=== PATIENT | female | born 1995 ===

== ENCOUNTER 2017-06-22 20:41 | Emergency (ER) | payer OTHER ==
[2017-06-22 20:51] VITALS: BP 131/67; PULSE 100; RESP 16; TEMP 99.1; O2SAT 96
[2017-06-22 21:43] LABS: BASO % 0.4 % (0.0-2.0); EOS % 0.1 % (0.0-4.0); LYMPH # 2.5 K/uL (1.0-4.3); LYMPH % 29.2 % (20.0-40.0); MEAN CELL VOLUME 90.6 fl (81.0-99.0); MEAN CORPUSCULAR HEMOGLOBIN 30.3 pg (27.0-31.0); MEAN CORPUSCULAR HGB CONC 33.4 g/dL (33.0-37.0); MEAN PLATELET VOLUME 8.7 fl (7.2-11.7); MONO # 0.4 K/uL (0.0-0.8); MONO % 4.8 % (0.0-10.0); NEUT # 5.5 K/uL (1.8-7.0); NEUT % 65.5 % (50.0-75.0); RED CELL DISTRIBUTION WIDTH 13.4 % (11.5-14.5); WHITE BLOOD COUNT 8.4 K/uL (4.8-10.8)
--- NOTE | 2017-06-22 21:48 | ED PDOC ---
HPI: General Adult Time Seen by Provider: 06/22/17 21:00 Chief Complaint (Nursing): Abdominal Pain Chief Complaint (Provider): epigastric discomfort History Per: Patient (21 y/o female approx 7 week gestation here with epigastric pain today continuous associated with vomiting. Denies any fevers/ chills. Has started PNV. No care as of yet. ) Past Medical History Reviewed: Historical Data, Nursing Documentation, Vital Signs Vital Signs: Last Vital Signs Temp 99.1 F 06/22/17 20:47 Pulse 100 H 06/22/17 20:47 Resp 16 06/22/17 20:47 BP 131/67 06/22/17 20:47 Pulse Ox 96 06/22/17 21:49 - Family History Family History: States: No Known Family Hx - Home Medications Home Medications: Ambulatory Orders Medication Instructions Recorded Ondansetron ODT [Zofran ODT] 4 mg PO Q8 PRN #10 odt 06/23/17 - Allergies Allergies/Adverse Reactions: Allergies Allergy/AdvReac Type Severity Reaction Status Date / Time No Known Allergies Allergy Verified 06/22/17 20:51 Review of Systems ROS Statement: Except As Marked, All Systems Reviewed And Found Negative Gastrointestinal: Positive for: Vomiting, Abdominal Pain Physical Exam - Reviewed Nursing Documentation Reviewed: Yes Vital Signs Reviewed: Yes - Physical Exam Appears: Positive for: Well, Non-toxic, No Acute Distress Head Exam: Positive for: ATRAUMATIC, NORMAL INSPECTION, NORMOCEPHALIC Skin: Positive for: Normal Color, Warm, DRY Eye Exam: Positive for: EOMI, Normal appearance, PERRL ENT: Positive for: Normal ENT Inspection Neck: Positive for: Normal, Painless ROM Cardiovascular/Chest: Positive for: Regular Rate, Rhythm Respiratory: Positive for: CNT, Normal Breath Sounds Gastrointestinal/Abdominal: Positive for: Normal Exam, Bowel Sounds, Soft, Tenderness (epigastric tenderness) Back: Positive for: Normal Inspection Extremity: Positive for: Normal ROM Neurologic/Psych: Positive for: Alert, Oriented - Laboratory Results Result Diagrams: 06/22/17 19:38 06/22/17 21:20 Urine POC: Positive Urine dip results: Positive for: Blood, Ketones. Negative for: Leukocyte Esterase, Nitrate, Glucose, Bilirubin, Protein - ECG O2 Sat by Pulse Oximetry: 96 - Progress ED Course And Treament: us abdomen: gallbladder sludge; no stones; no signs of cholecystitis us pelvis: 6 week 3 day SLIUP; heart activity noted. pepcid 20mg iv x 1 dose zofran 4 mg iv x 1 dose NS 1 liter wide open D5 1/2 NS 1 liter 500 ml per hour. Disposition - Clinical Impression Clinical Impression: Gastritis - Patient ED Disposition Is Patient to be Admitted: No - Disposition Disposition: Routine/Home Disposition Time: 02:24 Condition: FAIR Prescriptions: Ondansetron ODT [Zofran ODT] 4 mg PO Q8 PRN #10 odt PRN Reason: Nausea/Vomiting Instructions: Hyperemesis Gravidarum (ED) Forms: [facility] ([facility])
[2017-06-22] MEDS ORDERED: Sodium Chloride 0.9% 1,000 ML IV STA (21:49)
[2017-06-22 21:52] LABS: URINE BACTERIA RARE (<OCC); URINE BILIRUBIN NEGATIVE (NEGATIVE); URINE BLOOD NEGATIVE (NEGATIVE); URINE COLOR YELLOW (YELLOW); URINE GLUCOSE (UA) NEG (Normal); URINE KETONE 80 mg/dL (NEGATIVE); URINE LEUKOCYTE ESTERASE NEG Leu/uL (Negative); URINE PROTEIN 30 mg/dL (NEGATIVE); WBC URINE 4 /hpf (0-5)
[2017-06-22 21:55] LABS: RBC URINE 2 /hpf (0-3)
[2017-06-22 22:00] LABS: ALB/GLOB RATIO 1.3 (1.0-2.1); ALKALINE PHOSPHATASE 52 U/L (38-126); ALT/SGPT 88 U/L (9-52); AST/SGOT 48 U/L (14-36); BILIRUBIN,TOTAL 1.4 mg/dl (0.2-1.3); BLOOD UREA NITROGEN 10 mg/dl (7-17); CALCIUM 9.3 mg/dL (8.4-10.2); CARBON DIOXIDE 19 mmol/L (22-30); CHLORIDE 104 mmol/L (98-107); GFR AFRICAN-AMERICAN > 60; GLUCOSE,RANDOM 119 mg/dL (65-105); LIPASE 95 U/L (23-300); SODIUM 135 mmol/l (132-148); TOTAL PROTEIN 7.4 G/DL (6.3-8.2)
[2017-06-22] MEDS ORDERED: Dextrose 5%/0.45% NS 1,000 ML IV SCH (22:00)
[2017-06-22 22:09] LABS: POTASSIUM 4.8 MMOL/L (3.6-5.0)
--- NOTE | 2017-06-22 23:37 | US ---
EXAM: US Abdomen Limited, Right Upper Quadrant CLINICAL HISTORY: 21 years old, female; Pain; Abdominal pain; Epigastric; ; Additional info: Evaluate for gallstone TECHNIQUE: Real-time ultrasound of the right upper quadrant with image documentation. COMPARISON: No relevant prior studies available. FINDINGS: Liver: Unremarkable in echogenicity and size measuring 12.4 cm in longitudinal dimension. No intrahepatic bile duct dilation. Gallbladder: Sludge is identified within the gallbladder, which is otherwise unremarkable. Common bile duct: No stones. No dilation, measuring 3 mm. Pancreas: Visualization of the pancreas is limited by overlying bowel gas. Right kidney: No acute findings. No obstructing stones. No solid mass. No hydronephrosis. IMPRESSION: Sludge within an otherwise unremarkable gallbladder, as detailed above. Limited evaluation of the pancreas, secondary to overlying bowel gas.
--- NOTE | 2017-06-22 23:42 | US ---
EXAM: US Uterus, Limited CLINICAL HISTORY: 21 years old, female; Pain; Other: Abd pain; Gestational age or lmp: 05/02/17; ; Additional info: Approx 7 weeks ; Abdominal pain TECHNIQUE: Real-time ultrasound of the maternal uterus (limited) with image documentation. COMPARISON: No relevant prior studies available. FINDINGS: A single intrauterine gestation is identified with a crown-rump length measuring 6 mm, corresponding to an approximate gestational age of 6 weeks and 3 days. A well-formed yolk sac is detected. The mean gestational sac size measures 2.6 cm, corresponding to an approximate gestational age of 7 weeks and 2 days. cardiac activity is identified at a rate of 127 beats per minute. The left ovary is unremarkable in echogenicity and size measuring 1.9 x 1.5 x 1.9 cm. The right ovary is unremarkable in echogenicity and size measuring 2.8 x 2.2 x 2.5 cm. No free fluid is detected. No implantation hemorrhage is noted. The cervix measures 5 cm, and is closed. IMPRESSION: Single intrauterine gestation with an approximate gestational age of 6 weeks and 3 days. cardiac activity is identified.
== END 2017-06-23 03:08 | disposition home or self-care (01) ==
LOC: H.ER 20:41
DX: O26.891 Other specified pregnancy related conditions, first trimester (principal); Z3A.01 Less than 8 weeks gestation of pregnancy; K29.70 Gastritis, unspecified, without bleeding
CPT/HCPCS: 76705; 76815; 80053; 81003; 81025; 83690; 84702; 85025; 87086; 96361; 96374; 96375; 99283; J2405; J7040; J7042

== ENCOUNTER 2018-01-29 09:59 | Inpatient (IN) | payer MEDICAID, SELFPAY ==
[2018-01-29 11:22] VITALS: BMI 27.1
[2018-01-29] MEDS ORDERED: Lactated Ringer's 1,000 ML IV SCH ×2 (11:30)
--- NOTE | 2018-01-29 13:00 | OBHP ---
Datetime: 01/29/2018 11:08 IP Adm Impression: Term, intrauterine ; No Active Labor; Ruptured Membranes IP Admit Plan: Admit to unit; Initiate labor protocol Admit Comment, IP Provider: 22 yo at 38.6 weeks GA, THERESA 02/06/18 based on LMP, c/w first trimest er US presents to [facility] w/ c/o suspected SROM at 9:40 am this morning. Pt reports +fm. Denies LOF, ctx or VB. Pt is GBS negative. PNC: Dr. Arredondo, 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 hx rheumatic heart disease, cleared by cardiolgoist pshx: denies socialhx: denies smoking, drinking alcohol or using drugs family hx: denies family hx CAD or HTN meds: PNV allergies: NKDA Assessment: 22 yo IUP @38.6 weeks GA presents for SROM Plan: Admit to L_D Initiate labor protocol continue heart tracing gbs negative labs Case d/w on-call OB Hospitalist Dr. Wilfredo Villalba OB Hospitalist on-call - Pt seen. Agree with note. conditoin, labor, pain managemnt, labor, IOL, d elivery and discussed - MAHNDO Extremities - PN: Normal Abdomen - PN: Normal Back - PN: Normal Lungs - PN: Normal Heart - PN: Normal Neurologic - PN: Normal HEENT - PN: Normal General - PN: Normal FHR - Baseline A Provider: 130s Amniotic Fluid Color, Provider: Clear Membranes, Provider: Ruptured Comments, ACOG Physical Exam: SPE: + pooling. Clear fluids sve: 1/thick/high Pool Provider: Positive Nitrazine Provider: Positive Ferning Provider: Positive IP Hx Assessment: The History has been Reviewed and is Current EGA AdmitDate IP: 38.6 IP Chief Complaint: Suspected ruptured membranes NICHD Variability Prov Fetus A: Moderate 6-25bpm NICHD Accel Fetus A IP Provider: [id number] FHR Category Provider Fetus A: Category I NICHD Decel Fetus A IP Provider: None Dilatation, Provider: 1 Effacement, Provider: thick Station, Provider: high
[2018-01-29 13:01] LABS: BASO % 0.5 % (0.0-2.0); EOS # 0.1 K/uL (0.0-0.7); EOS % 0.9 % (0.0-4.0); HEMOGLOBIN 11.2 g/dL (12.0-16.0); LYMPH # 1.8 K/uL (1.0-4.3); LYMPH % 22.6 % (20.0-40.0); MEAN CELL VOLUME 99.5 fl (81.0-99.0); MEAN CORPUSCULAR HEMOGLOBIN 33.1 pg (27.0-31.0); MEAN CORPUSCULAR HGB CONC 33.3 g/dL (33.0-37.0); MEAN PLATELET VOLUME 10.1 fl (7.2-11.7); MONO # 0.6 K/uL (0.0-0.8); MONO % 7.2 % (0.0-10.0); NEUT # 5.6 K/uL (1.8-7.0); NEUT % 68.8 % (50.0-75.0); NRBC % 0.1 % (0.0-0.0); RBC 3.37 Mil/uL (3.80-5.20); RED CELL DISTRIBUTION WIDTH 14.8 % (11.5-14.5); WHITE BLOOD COUNT 8.1 K/uL (4.8-10.8)
--- NOTE | 2018-01-29 15:58 | OBPN ---
Datetime: 01/29/2018 15:30 IP Progress Impression: Reassuring heart rate; Rupture of membranes IP Informed Consent Obtain: Vaginal Delivery; Risks, Benefits and Alternatives Discussed IP Progress Plan: Induction; Cervical Ripening Membranes, Provider: Ruptured Presentation-Admit: Vertex IP Progress Note Comment: She feels fine. Occ CTX; no VB; +FM No cervical change note A: IUP at term; unfavorable cervix PLAN: condition explained to pt. Agrees to start Cytotec for IOL. Medications discussed incl ris ks/complicatoins (FOB present) FHR Category Provider Fetus A: Category I Dilatation, Provider: FT Effacement, Provider: LONG Station, Provider: HIGH Datetime: 01/29/2018 11:08 Pool Provider: Positive Nitrazine Provider: Positive Ferning Provider: Positive Amniotic Fluid Color, Provider: Clear FHR - Baseline A Provider: 130s NICHD Accel Fetus A IP Provider: [id number] NICHD Variability Prov Fetus A: Moderate 6-25bpm NICHD Decel Fetus A IP Provider: None
[2018-01-30] MEDS ORDERED: Nalbuphine 20 mg/ml Inj (1 ml) IVP PRN (00:37)
[2018-01-30] MEDS: Lactated Ringer's 1,000 ML IV SCH ×3 (09:00→13:15)
[2018-01-30] MEDS ORDERED: Oxytocin 30 units/LR 500ML 30 U/500 ML BAG IV ONE ×2 (11:28→11:30)
[2018-01-30] MEDS ORDERED: Bupivacaine HCl 0.25% PF (10 ml) Inj ONE (12:35)
[2018-01-30] MEDS ORDERED: Fentanyl/Bupivacaine HCl 125 ML EPI ONE (12:37)
[2018-01-30] MEDS ORDERED: Lidocaine 1% Inj (20ml) ONE (18:22)
[2018-01-30] MEDS ORDERED: Benzocaine/Menthol SPRAY TOP PRN ×2 (18:33→22:36)
[2018-01-30] MEDS ORDERED: Oxycodone/Acetaminophen 5/325 mg Tab PO PRN ×2 (18:33→22:36)
--- NOTE | 2018-01-30 18:43 | OBDS ---
DELIVERY PERSONNEL Delivery Doctor: Bernice Kate MD [place] Dehydrator Operator: Cindy Benson RN Anesthesiologist: Mdeina Graf MD Resident: Dr Leonardo MATERNAL INFORMATION Delivery Anesthesia: Epidural Medications in Delivery: pitocin 30 units in 500 ml LR Estimated Blood Loss (ml): 100 Placenta Cultured: No Maternal Complications: None Provider Comments: Delivered a live baby girl at 1821 the baby was bulb suctioned on the perineum an d transferred to the maternal chest. The cord was clamped and cut 3 vessels noted cord blood was obta ined and sent to the lab. Placenta was delivered at 1825 intact, the estimated blood loss was 100 mL. There was a first-degree vaginal laceration which was repaired with 2-0 Rapide. The mother tolerated the procedure well and the baby went to the nursery with Apgars of 9 and 9 weighing 2855 g LABOR SUMMARY EDC: 02/06/2018 00:00 No. Babies in Womb: 1 Attempted: No Labor Anesthesia: Epidural LABOR INFORMATION Reason for Induction: Premature Rupture of Membranes Onset of Labor: 01/29/2018 09:40 Complete Dilatation: 01/30/2018 17:48 Cervical Ripening Agents: Cytotec @ 50 Oxytocin: Augmentation Group B Beta Strep: Negative Reason Steroids Not Administered: Not Applicable MEMBRANES Membranes Rupture Method: Spontaneous Rupture of Membranes: 01/29/2018 09:40 Length of Rupture (hrs): 32.68 Amniotic Fluid Color: Clear Amniotic Fluid Amount: Moderate Amniotic Fluid Odor: Normal STAGES OF LABOR Stage 1 hrs: 32 Stage 1 min: 8 Stage 2 hrs: 0 Stage 2 min: 33 Stage 3 hrs: 0 Stage 3 min: 4 Total Time in Labor hrs: 32 Total Time in Labor min: 45 VAGINAL DELIVERY Episiotomy: None Laceration Extension: First Degree Laceration Type: None Laceration Repair: Yes Initial Vag Sponge Count: 5 Final Vag Sponge Count: 5 Initial Vag Sharps Count: 1 Final Vag Sharps Count: 1 Sponge Count Correct: Yes Sharps Count Correct: Yes BABY A INFORMATION Infant Delivery Date/Time: 01/30/2018 18:21 Method of Delivery: Vaginal Born in Route : No : N/A Forceps: N/A Vacuum Extraction: N/A Shoulder Dystocia : No SHOULDER DYSTOCIA BABY A Infant Delivery Date/Time: 01/30/2018 18:21 PRESENTATION/POSITION BABY A Presentation: Cephalic Cephalic Presentation: Vertex Breech Presentation: N/A PLACENTA INFORMATION BABY A Placenta Delivery Time : 01/30/2018 18:25 Placenta Method of Delivery: Spontaneous Placenta Status: Delivered SCORES BABY A Heart Rate 1 min: >100 bpm Resp Effort 1 min: Good Cry Reflex Irritability 1 min: Cough or Sneeze or Pulls Away Muscle Tone 1 min: Active Motion Color 1 min: Body [place], Extremities Blue SCORE 1 MIN: 9 Heart Rate 5 min: >100 bpm Resp Effort 5 min: Good Cry Reflex Irritability 5 min: Cough or Sneeze or Pulls Away Muscle Tone 5 min: Active Motion Color 5 min: Body [place], Extremities Blue SCORE 5 MIN: 9 INFORMATION BABY A Gestational Age at Delivery: 39.0 Gestational Status: Term Infant Outcome : Liveborn Condition : Stable Infant Sex: Female CORD INFORMATION BABY A No. Cord Vessels: 3 Nuchal Cord : N/A Cord Blood Taken: No Suction: Mouth; Nose
[2018-01-30] MEDS ORDERED: Lactated Ringer's 1,000 ML IV SCH (22:36)
[2018-01-31 06:46] LABS: MEAN CELL VOLUME 97.3 fl (81.0-99.0); MEAN CORPUSCULAR HEMOGLOBIN 33.8 pg (27.0-31.0); MEAN CORPUSCULAR HGB CONC 34.7 g/dL (33.0-37.0); RBC 2.96 Mil/uL (3.80-5.20); RED CELL DISTRIBUTION WIDTH 14.9 % (11.5-14.5); WHITE BLOOD COUNT 13.2 K/uL (4.8-10.8)
--- NOTE | 2018-01-31 07:04 | CP.PCM.PCO ---
Addendum Addendum: 01/31/18 07:02 Patient seen this morning. Patient recovering well and appropriately after of daughter. Patient reports crampy pain relieved w/ medication. Patient reports daughter is under observation in nursery due to tachypnea after but otherwise recovering well. Patient reports that she will bottle and breast feed.
--- NOTE | 2018-01-31 09:15 | OBPPN ---
Datetime: 01/31/2018 07:28 PP Pain Prov: Within normal limits PP Nausea Prov: Denies PP Flatus Prov: Yes PP BM Prov: No PP Heart Prov: Normal PP Lungs Prov: Normal PP Abdomen/Uterus Prov: Normal PP Lochia Prov: Normal PP CVA Tenderness Prov: Normal PP Extremities Prov: Normal PP C/S Incision Prov: Not Applicable PP Impression Prov: Normal progression PP Plan Prov: Continue present management PP Progress Note Prov: 22 y/o F now , s/p NVD on 01/30/18. Pelvic pain is well controlled with medication. Pt afebrile, tolerating PO, has good appetite with NO acute events overnight. Pt able to ambulate. Pt voiding with no issues, passing gases but NO bowel movement yet. Pt and carrizales pplementing with formula. Lochia is described as same as menses. Pt denies headache, dizziness, CP, S OB, N/V or calf tenderness All systems reviewed and negative except as above. O: PE: -Gen: A_O, resting comfortably on bed, NAD. -Lungs: CTAB, No W/R/R. -CV: RRR, S1 and S2 present. -ABD: soft, BS +, firm fundus below umbilicus. -EXT: No cyanosis, non-tender calves. A/P: 22 y/o F on PPD 1, stable, recovering well from . --Continue with post- management. -- and ambulation encouraged. --Anticipated discharge 02/01/18. Case discussed with OB chief operations officer Dariel PGY-1. OB Hospitalist Addendum: Pt seen and examined. Agree w/ above. PPD 1 s/p , doing well, breast and bottle feeding. Continue current care. (ES) IP PP Procedures: None Vital Signs Provider PP: Reviewed
--- NOTE | 2018-02-01 08:16 | CP.PCM.PCO ---
Addendum Addendum: 02/01/18 08:13 Patient seen this morning. Patient ambulating and reporting minimal pain. Patient preparing to be discharged home. Has post- appointment with Dr. Arredondo on 03/13/2018. Counseled to have daughter seen by Sunday for evaluation. Patient considering [facility], but will decide upon discharge.
--- NOTE | 2018-02-01 10:28 | OBDCSUM ---
Datetime: 02/01/2018 06:57 Discharged to, Provider: Home Follow up at, Provider: [facility]ICE Disch Instr Activity: Normal activity; May be up to bathroom; May be up for meals; May Shower Disch Instr Diet: Regular Discharge Instructions, Provider: Routine instructions given Discharge Diagnosis, Provider: Term Delivered Discharge Time: 02/01/2018 06:57 Follow up in weeks, Provider: 6 weeks Disch Referrals: None Disch Activity Restrictions: No lifting; No driving; Minimize stair-climbing; No sexual activity; No thing in vagina - [place], tampons, douche Discharge Comment, Provider: --F/U with PCP in 6 weeks for post- examination. -- and ambulation encouraged. --Post- care instructions reviewed with pt. --ER precautions discussed with pt. OB Hospitalist on-call. Pt seen and examined on rounds 10am...agree wtih PGY1 note...PHILIPP
--- NOTE | 2018-02-01 10:28 | OBPPN ---
Datetime: 02/01/2018 06:56 PP Pain Prov: Within normal limits PP Nausea Prov: Denies PP Flatus Prov: Yes PP BM Prov: No PP Heart Prov: Normal PP Lungs Prov: Normal PP Abdomen/Uterus Prov: Normal PP Lochia Prov: Normal PP CVA Tenderness Prov: Normal PP Extremities Prov: Normal PP C/S Incision Prov: Not Applicable PP Progress Prov: Normal PP Impression Prov: Normal progression PP Plan Prov: Discharge PP Progress Note Prov: 22 y/o F now , s/p NVD on 01/30/18. Pelvic pain is well controlled with medication. Pt afebrile, tolerating PO, has good appetite with NO acute events overnight. Pt able to ambulate. Pt voiding with no issues, passing gases but NO bowel movement yet. Pt and carrizales pplementing with formula. Lochia is described as same as menses. Pt denies headache, dizziness, CP, S OB, N/V or calf tenderness All systems reviewed and negative except as above. O: PE: -Gen: A_O, resting comfortably on bed, NAD. -Lungs: CTAB, No W/R/R. -CV: RRR, S1 and S2 present. -ABD: soft, BS +, firm fundus below umbilicus. -EXT: No cyanosis, non-tender calves. A/P: 22 y/o F on PPD 2, stable, recovering well from NVD. --Discharge pt today. --F/U with PCP in 6 weeks for post- examination. -- and ambulation encouraged. --Post- care instructions reviewed with pt. --ER precautions discussed with pt. Case discussed with OB applications support lead Dariel PGY-1. OB Hospitalist on-call. Pt seen and examined on rounds 10am...agree wtih PGY1 note...BERTONDO Vital Signs Provider PP: Reviewed
[2018-02-01 17:55] VITALS: BP 119/78; PULSE 86; RESP 20; TEMP 98; O2SAT 99
== END 2018-02-01 13:28 | disposition home or self-care (01) | DRG 774 ==
LOC: H.EROB2 09:59 → H.EROB 11:23 → H.L&D 20:57 → H.OB/GYN 01-30 22:33
PROVIDERS: ADMIT Obstetrics & Gynecology; ATTEND Obstetrics & Gynecology
PROC: 0HQ9XZZ Repair Perineum Skin, External Approach (ICD-10-PCS; principal; 2018-01-29)
PROC: 10E0XZZ Delivery of Products of Conception, External Approach (ICD-10-PCS; 2018-01-29)
PROC: 4A1HXCZ Monitoring of Products of Conception, Cardiac Rate, External Approach (ICD-10-PCS; 2018-01-29)
DX: O70.0 First degree perineal laceration during delivery (principal); O99.42 Diseases of the circulatory system complicating childbirth; Z37.0 Single live birth; I09.9 Rheumatic heart disease, unspecified; Z3A.38 38 weeks gestation of pregnancy